=== PATIENT | female | born 1980 | race Hispanic/Latino ===

== ENCOUNTER 2018-07-31 01:29 | Emergency (ER) | payer SELFPAY ==
--- NOTE | 2018-07-31 02:51 | EDPHYS ---
Physician Documentation [facility] Name: Aleyda Horton Age: 38 yrs Sex: Female : 1980 Arrival Date: 07/31/2018 Time: 01:30 Bed 19 Private MD: ED Physician Ashkan Jackson HPI: 07/31 01:41 This 38 yrs old Female presents to ER via Ambulatory with complaints of rash cp on face, Congestion. 01:46 The patient's rash thought to be caused by medication. The rash is located on the face cp and upper chest. Onset: The symptoms/episode began/occurred yesterday, at 17:00. Associated signs and symptoms: Pertinent positives: itching, cough sore throat, Pertinent negatives: difficulty breathing, fever, swelling of lips, swelling of throat, swelling of tongue. Severity of symptoms: in the emergency department the symptoms are unchanged despite home interventions. Treatment given at home: none. Patient reports her children were recently diagnosed with flu and she has had cough, sore throat for past 3 days. Patient reports she has been taking OTC Nyquil and Theraflu and developed rash on face and upper chest yesterday at 1700. 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 - Social history:: Smoking status: Patient/guardian denies using tobacco. - Ebola Screening: : No symptoms or risks identified at this time. ROS: 01:45 Constitutional: Negative for fever, poor PO intake. cp 01:45 Eyes: Negative for injury, pain, redness, and discharge. cp 01:45 ENT: Positive for sore throat, Negative for drainage from ear(s), ear pain, difficulty swallowing, difficulty handling secretions. 01:45 Neck: Negative for pain with movement, pain at rest, stiffness. 01:45 Respiratory: Positive for cough, with no reported sputum, Negative for shortness of breath, wheezing. 01:45 Abdomen/GI: Negative for abdominal pain, vomiting, diarrhea, constipation. 01:45 Skin: Positive for rash, of the face and upper chest. 01:45 Neuro: Negative for altered mental status, headache, weakness. 01:45 All other systems are negative. Exam: 01:55 Constitutional: The patient appears in no acute distress, alert, awake, non-toxic, well cp developed, well nourished. 01:55 Head/face: Noted is rash, that is urticarial, Sinus tenderness, is not appreciated. cp 01:55 Eyes: Periorbital structures: appear normal, Pupils: equal, round, and reactive to light and accomodation, Extraocular movements: intact throughout, Conjunctiva: normal, no exudate, no injection, Sclera: no appreciated abnormality, Lids and lashes: appear normal, bilaterally. 01:55 ENT: External ear(s): are unremarkable, Ear canal(s): are normal, clear, TM's: are normal, no evidence of bulging, no erythema, Nose: is normal, Mouth: Lips: moist, Oral mucosa: moist, Posterior pharynx: Airway: no evidence of obstruction, patent, Tonsils: no enlargement, no exudate, swelling, is not appreciated, erythema, that is mild, exudate, is not appreciated, Voice: is normal. 01:55 Neck: ROM/movement: is normal, is supple, without pain, no range of motions limitations, no nuchal rigidity. 01:55 Chest/axilla: Inspection: rash, of the upper chest and neck Palpation: is normal, no crepitus, no tenderness. 01:55 Cardiovascular: Rate: normal, Rhythm: regular, Edema: is not appreciated, JVD: is not appreciated. 01:55 Respiratory: the patient does not display signs of respiratory distress, Respirations: normal, no use of accessory muscles, no retractions, no splinting, no tachypnea, labored breathing, is not present, Breath sounds: are clear throughout, no decreased breath sounds, no stridor, no wheezing. 01:55 Abdomen/GI: Exam negative for discomfort, distension, guarding, Inspection: abdomen appears normal. Vital Signs: 01:39 BP 140 / 84; Pulse 81; Resp 18; Temp 97.8(O); Pulse Ox 98% on R/A; Weight 92.53 kg; lp1 Height 5 ft. 4 in. (162.56 cm); Pain 9/10; 03:09 BP 128 / 86; Pulse 65; Resp 18; Pulse Ox 98% on R/A; lp1 01:39 Body Mass Index 35.02 (92.53 kg, 162.56 cm) lp1 MDM: 01:30 Patient medically screened. cp 02:50 Data reviewed: vital signs, nurses notes. cp 02:50 Counseling: I had a detailed discussion with the patient and/or guardian regarding: the cp historical points, exam findings, and any diagnostic results supporting the discharge/admit diagnosis, lab results. Response to treatment: the patient's symptoms have mildly improved after treatment, and as a result, I will discharge patient. 07/31 01:46 Order name: Influenza Screen (a \T\ B); Complete Time: 02:53 cp 07/31 02:53 Interpretation: Reviewed. cp 07/31 01:46 Order name: Strep; Complete Time: 02:53 cp 07/31 02:53 Interpretation: Reviewed. cp 07/31 03:04 Order name: Throat Culture EDMS Administered Medications: 02:46 Drug: predniSONE 60 mg Route: PO; ed1 03:22 Follow up: Response: No adverse reaction lp1 02:46 Drug: Pepcid 20 mg Route: PO; ed1 03:22 Follow up: Response: No adverse reaction lp1 Disposition: 03:30 Chart complete. cp 06:12 Co-signature as Attending Physician, Ashkan Jackson MD I agree with the assessment and tw4 plan of care. Disposition: 07/31/18 02:50 Discharged to Home. Impression: Allergy status to drugs, medicaments and biological substances, Urticaria, Acute upper respiratory infection, unspecified. - Condition is Stable. - Discharge Instructions: Hives, Upper Respiratory Infection, Adult. - Prescriptions for Prednisone 20 mg Oral Tablet - take 2 tablet by ORAL route once daily for 5 days; 10 tablet. Albuterol Sulfate 90 mcg/actuation - inhale 1-2 puff by INHALATION route every 4-6 hours; 1 Inhaler. - Medication Reconciliation Form, Thank You Letter, Antibiotic Education, Prescription Opioid Use form. - Follow up: Private Physician; When: 2 - 3 days; Reason: Recheck today's complaints. - Problem is new. - Symptoms have improved. Signatures: Dispatcher [employer] EDMS Mary Kate Rodriguez RN RN ed1 Jennifer Perry RN RN lp1 Luan Day PA PA cp Ashkan Jackson MD MD tw4 Corrections: (The following items were deleted from the chart) 02:28 01:51 Chest Pa And Lat (2 Views)+[email or web address] ordered. EDMS EDMS 03:22 02:50 07/31/2018 02:50 Discharged to Home. Impression: Allergy status to drugs, lp1 medicaments and biological substances; Urticaria; Acute upper respiratory infection, unspecified. Condition is Stable. Forms are Medication Reconciliation Form, Thank You Letter, Antibiotic Education, Prescription Opioid Use. Follow up: Private Physician; When: 2 - 3 days; Reason: Recheck today's complaints. Problem is new. Symptoms have improved. cp
--- NOTE | 2018-07-31 02:51 | ER ---
Nurse's Notes [facility] Name: Aleyda Horton Age: 38 yrs Sex: Female : 1980 Arrival Date: 07/31/2018 Time: 01:30 Bed 19 Private MD: Diagnosis: Allergy status to drugs, medicaments and biological substances;Urticaria;Acute upper respiratory infection, unspecified Presentation: 07/31 01:37 Presenting complaint: Patient states: facial pain, congestion, cough x 4 days; States lp1 taking Theraflu and Nyquil yesterday due to child diagnosed with Flu; States rash that began to face and feels burning. Transition of care: patient was not received from another setting of care. Onset of symptoms was July 30, 2018 at 17:00. Risk Assessment: Do you want to hurt yourself or someone else? Patient reports no desire to harm self or others. Initial Sepsis Screen: Does the patient meet any 2 criteria? No. Patient's initial sepsis screen is negative. Does the patient have a suspected source of infection? No. Patient's initial sepsis screen is negative. Care prior to arrival: None. 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 - Social history:: Smoking status: Patient/guardian denies using tobacco. - Ebola Screening: : No symptoms or risks identified at this time. Screenin:08 Abuse screen: Denies threats or abuse. Denies injuries from another. Nutritional ed1 screening: No deficits noted. Tuberculosis screening: No symptoms or risk factors identified. Fall Risk None identified. Assessment: 02:08 General: Appears in no apparent distress. Behavior is calm, cooperative, Reports ed1 feeling ill for 12-24 hours. Pain: Complains of pain in generalized Pain currently is 9 out of 10 on a pain scale. Quality of pain is described as aching, Pain began 1 day ago. Is continuous. Neuro: Level of Consciousness is awake, alert, obeys commands, Oriented to person, place, time, situation. Cardiovascular: Heart tones S1 S2 present Capillary refill < 3 seconds in bilateral fingers. Respiratory: Reports cough that is non-productive, Airway is patent Respiratory effort is even, unlabored, Respiratory pattern is regular, symmetrical, Breath sounds are clear bilaterally. GI: No signs and/or symptoms were reported involving the gastrointestinal system. : No signs and/or symptoms were reported regarding the genitourinary system. EENT: No signs and/or symptoms were reported regarding the EENT system. Derm: Skin is intact, is healthy with good turgor, Skin is dry, Skin is normal, Skin temperature is warm Rash noted that is urticaria, on face and neck. Musculoskeletal: Circulation, motion, and sensation intact. Range of motion: intact in all extremities. 03:00 Reassessment: Patient appears in no apparent distress at this time. Patient aware of lp1 pending discharge; Monitoring after administration of medications. Vital Signs: 01:39 BP 140 / 84; Pulse 81; Resp 18; Temp 97.8(O); Pulse Ox 98% on R/A; Weight 92.53 kg; lp1 Height 5 ft. 4 in. (162.56 cm); Pain 9/10; 03:09 BP 128 / 86; Pulse 65; Resp 18; Pulse Ox 98% on R/A; lp1 01:39 Body Mass Index 35.02 (92.53 kg, 162.56 cm) lp1 ED Course: 01:30 Patient arrived in ED. ds1 01:30 Luna Day PA is PHCP. cp 01:30 Ashkan Jackson MD is Attending Physician. cp 01:32 Mary Kate Rodriguez, HERNÁN is Primary Nurse. ed1 01:39 Triage completed. lp1 01:39 Arm band placed on. lp1 02:08 Patient has correct armband on for positive identification. Bed in low position. Call ed1 light in reach. 02:08 Flu and/or RSV swab sent to lab. Strep swab sent to lab. ed1 02:48 Primary Nurse role handed off by Mary Kate Rodriguez, HERNÁN ed1 02:55 Report received from Mary Kate Rodriguez RN. lp1 03:08 No provider procedures requiring assistance completed. Patient did not have IV access lp1 during this emergency room visit. 03:21 Jennifer Perry, RN is Primary Nurse. lp1 Administered Medications: 02:46 Drug: predniSONE 60 mg Route: PO; ed1 03:22 Follow up: Response: No adverse reaction lp1 02:46 Drug: Pepcid 20 mg Route: PO; ed1 03:22 Follow up: Response: No adverse reaction lp1 Outcome: 02:50 Discharge ordered by . cp 03:21 Discharged to home ambulatory. lp1 03:21 Condition: good 03:21 Discharge instructions given to patient, Instructed on discharge instructions, follow up and referral plans. medication usage, Demonstrated understanding of instructions, follow-up care, medications, Prescriptions given X 2. 03:22 Patient left the ED. lp1 Signatures: Abbie Polanco ds1 Mary Kate Rodriguez RN RN ed1 Jennifer Perry RN RN lp1 Luan Day, AYAZ PA cp
[2018-07-31] MEDS ORDERED: predniSONE 20 MG TAB ONE (02:54)
[2018-07-31] MEDS ORDERED: FAMOTIDINE 20 MG TAB ONE (02:54)
[2018-07-31 03:29] VITALS: TEMP 97.8; O2SAT 98
[2018-07-31 03:30] VITALS: BP 128/86
== END 2018-07-31 03:22 | disposition home or self-care (01) ==
LOC: ER 01:29
DX: L50.9 Urticaria, unspecified (principal); J06.9 Acute upper respiratory infection, unspecified; Z88.0 Allergy status to penicillin; Z88.9 Allergy status to unspecified drugs, medicaments and biological substances
CPT/HCPCS: 87070; 87081; 87804; 99283; J7512

== ENCOUNTER 2019-05-17 13:23 | Emergency (ER) | payer SELFPAY ==
[2019-05-17] MEDS ORDERED: MORPHINE 4 MG/ML SYR ONE (15:20)
[2019-05-17] MEDS ORDERED: ONDANSETRON 4 MG/2 ML VIAL ONE (15:20)
[2019-05-17] MEDS ORDERED: NA CHLORIDE 0.9% 1,000 ML ONE (15:20)
[2019-05-17 15:23] LABS: Basophils % 0.5 % (0-1.3); Hematocrit 38.4 % (36.0-45.0); Lymphocytes % 36.6 % (15.3-44.8); MPV 10.3 fL (7.6-11.3); RBC Red Blood Cell Count 4.22 M/uL (3.86-4.86)
[2019-05-17 15:34] LABS: ALT/SGPT 64 U/L (12-78); AST/SGOT 23 U/L (15-37); Albumin 3.5 g/dL (3.4-5.0); Alkaline Phosphatase 68 U/L (45-117); BUN Blood Urea Nitrogen 15 mg/dL (7-18); Bicarbonate 25 mmol/L (21-32); Bilirubin Direct 0.1 mg/dL (0-0.2); Bilirubin Total 0.3 mg/dL (0.2-1.0); Glucose Level 113 mg/dL (74-106); Lipase 208 U/L (73-393); Potassium 4.2 mmol/L (3.5-5.1); Sodium Level 141 mmol/L (136-145)
--- NOTE | 2019-05-17 16:44 | RAD REPORT ---
EXAM DESCRIPTION: CT - Abdomen Pelvis W Contrast - 05/17/2019 4:07 pm CLINICAL HISTORY: Abd pain;Flank pain COMPARISON: Abdomen Pelvis W Contrast dated 06/15/2017; Abdomen Pelvis W Contrast dated 09/06/2016 TECHNIQUE: Biphasic, helical CT imaging of the abdomen and pelvis was performed following 100 ml non -ionic IV contrast. No oral contrast. All CT scans are performed using dose optimization technique as appropriate and may include automated exposure control or mA/KV adjustment according to patient size. FINDINGS: No suspicious findings in the lung bases. Liver shows diffuse fatty infiltration. No focal liver lesion. Cholecystectomy clips are present. Henderson creas and spleen show no suspicious findings. Symmetric renal function is seen with no hydronephrosis or suspicious renal mass. No pyelonephritis o r acute parenchymal process. No bladder abnormalities. No adrenal abnormalities. Uterus and ovaries w ithout significant finding. No dilated bowel loops or bowel wall thickening. Appendectomy clips are present. No acute bowel findi ng. No free air, free fluid or inflammatory stranding. No hernia, mass or bulky lymphadenopathy. No suspicious bony findings. IMPRESSION: Contrast enhanced CT abdomen and pelvis showing no significant or suspicious finding.
[2019-05-17 16:49] LABS: Urine Blood NEGATIVE (NEG); Urine Glucose NEGATIVE (NEG); Urine Protein NEGATIVE (NEG); Urine Specific Gravity >1.030 (1.005-1.030)
--- NOTE | 2019-05-17 17:02 | ER ---
Nurse's Notes [facility] Name: Aleyda Horton Age: 39 yrs Sex: Female : 1980 Arrival Date: 05/17/2019 Time: 13:26 Bed 13 Private MD: Diagnosis: Unspecified abdominal pain;Lumbago with sciatica, left side Presentation: 05/17 13:54 Presenting complaint: Patient states: Left sided lower back pain radiates to left leg jl7 started last night. Epigastric pain started a couple weeks ago and has gotten worse today, reports diarrhea, denies N/V. Transition of care: patient was not received from another setting of care. Onset of symptoms was May 16, 2019. Risk Assessment: Do you want to hurt yourself or someone else? Patient reports no desire to harm self or others. Initial Sepsis Screen: Does the patient meet any 2 criteria? No. Patient's initial sepsis screen is negative. Does the patient have a suspected source of infection? No. Patient's initial sepsis screen is negative. Care prior to arrival: None. 13:54 Method Of Arrival: Ambulatory [facility] 13:54 Acuity: [place] 3 jl7 Triage Assessment: 13:57 General: Appears in no apparent distress. uncomfortable, Behavior is calm, cooperative, jl7 appropriate for age. Pain: Complains of pain in epigastric area Pain radiates to thoracic area Pain currently is 9 out of 10 on a pain scale. Quality of pain is described as burning, Pain began 1 day ago. 3 months. 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 - Social history:: Smoking status: Patient uses tobacco products, denies chronic smoking, but will smoke occasionally. - Ebola Screening: : No symptoms or risks identified at this time. Screenin:00 Abuse screen: Denies threats or abuse. Denies injuries from another. Nutritional bp screening: No deficits noted. Tuberculosis screening: No symptoms or risk factors identified. Fall Risk None identified. Assessment: 14:00 General: SEE TRIAGE NOTE. GI: Bowel sounds present X 4 quads. Abd is soft X 4 quads Abd bp is non tender X 4 quads. 16:00 Reassessment: PT TO CT, RESULTS PENDING. bp 17:38 Reassessment: PT D/C HOME AMBULATORY WITH FAMILY, DX WITH UNSPECIFIED ABDOMINAL PAIN bp AND LUMBAGO. Vital Signs: 13:57 BP 125 / 76; Pulse 72; Resp 16; Temp 97.7; Pulse Ox 99% on R/A; Pain 9/10; jl7 15:23 BP 118 / 74; Pulse 62; Resp 17; Temp 98.8(O); Pulse Ox 100% on R/A; mh5 16:20 BP 117 / 69; Pulse 59; Resp 16; Pulse Ox 97% ; bp 16:45 BP 115 / 86; Pulse 64; Resp 16; Pulse Ox 100% ; bp ED Course: 13:26 Patient arrived in ED. mr 13:57 Triage completed. jl7 13:57 Arm band placed on right wrist. jl7 14:00 Patient has correct armband on for positive identification. Placed in gown. Bed in low bp position. Call light in reach. Adult w/ patient. 14:41 Mark Madrigal, UNIVERSAL GRINDER SET UP OPERATOR is PHCP. pm1 14:41 Luan Reis MD is Attending Physician. pm1 15:10 Eduardo Lisa, HERNÁN is Primary Nurse. bp 15:21 Radiology exam delayed due to lab results not completed at this time. (BUN/Creatinine) mw3 test not completed at this time. 15:22 Pulse ox on. NIBP on. mh5 15:22 Initial lab(s) drawn, by nv, sent to lab. Urine collected: clean catch specimen, mh5 cloudy. Inserted saline lock: 20 gauge in right antecubital area, using aseptic technique. 16:05 CT completed. Patient tolerated procedure well. Patient moved back from CT. bq 16:14 CT Abd/Pelvis - IV Contrast Only In Process Unspecified. EDMS 17:40 No provider procedures requiring assistance completed. IV discontinued. bp Administered Medications: 15:00 Drug: morphine 4 mg Route: IVP; Site: right antecubital; bp 16:46 Follow up: Response: Pain is decreased bp 15:00 Drug: Zofran 4 mg Route: IVP; Site: right antecubital; bp 16:46 Follow up: Response: Nausea is decreased bp 15:00 Drug: NS 0.9% 1000 ml Route: IV; Rate: 1000 ml; Site: right antecubital; bp 17:41 Follow up: IV Status: Completed infusion; IV Intake: 1000ml bp 17:10 Drug: Lidoderm 5 % (700 mg/patch) 1 patches Route: Topical; Site: affected area; bp 17:10 Drug: GI Cocktail without - (Maalox Suspension 30 ml, Lidocaine Liquid 2 % 15 bp ml) Route: PO; 17:16 Follow up: Response: No adverse reaction bp Intake: 17:41 IV: 1000ml; Total: 1000ml. bp Outcome: 17:01 Discharge ordered by . pm1 17:40 Discharged to home ambulatory, with family. bp 17:40 Condition: stable 17:40 Discharge instructions given to patient, Instructed on discharge instructions, follow up and referral plans. medication usage, Demonstrated understanding of instructions, follow-up care, medications. 17:44 Patient left the ED. bp Signatures: Dispatcher [employer] EDIL Carmen Jett Betty bq Marinas, Patrick, JOS UNIVERSAL GRINDER SET UP OPERATOR pm1 Aleyda Rock 5 Suly George RN RN jl7 Eduardo Lisa RN RN Kavya Martines mw3
--- NOTE | 2019-05-17 17:02 | EDPHYS ---
Physician Documentation [facility] Name: Aleyda Horton Age: 39 yrs Sex: Female : 1980 Arrival Date: 05/17/2019 Time: 13:26 Bed 13 Private MD: ED Physician Luan Reis HPI: 05/17 14:42 This 39 yrs old Female presents to ER via Ambulatory with complaints of pm1 Abdominal Pain, Back Pain. 14:42 The patient presents with abdominal pain in the epigastric area. Onset: The pm1 symptoms/episode began/occurred 2 week(s) ago. The symptoms do not radiate. Associated signs and symptoms: Pertinent positives: diarrhea, Pertinent negatives: nausea and vomiting, dysuria, fever, headache. The symptoms are described as crampy. Modifying factors: The symptoms are alleviated by nothing, the symptoms are aggravated by nothing. Severity of pain: in the emergency department the pain is a 3 / 10. Feels similar to her epigastric pain prior to cholecystectomy. The patient has not recently seen a physician. Patient also having left lower back pain with radiation to left leg onset last night. Improved with right sided lying position and worse with left sided lysing position and lying flat on back. 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 - Social history:: Smoking status: Patient uses tobacco products, denies chronic smoking, but will smoke occasionally. - Ebola Screening: : No symptoms or risks identified at this time. ROS: 14:42 Constitutional: Negative for fever, chills, and weight loss, Eyes: Negative for injury, pm1 pain, redness, and discharge, ENT: Negative for injury, pain, and discharge, Neck: Negative for injury, pain, and swelling, Cardiovascular: Negative for chest pain, palpitations, and edema, Respiratory: Negative for shortness of breath, cough, wheezing, and pleuritic chest pain. 14:42 : Negative for injury, bleeding, discharge, and swelling, MS/Extremity: Negative for injury and deformity, Skin: Negative for injury, rash, and discoloration, Neuro: Negative for headache, weakness, numbness, tingling, and seizure. 14:42 Abdomen/GI: Positive for abdominal pain, diarrhea, Negative for nausea and vomiting, constipation. 14:42 Back: Positive for of the left low back, Negative for injury or acute deformity. Exam: 14:42 Constitutional: This is a well developed, well nourished patient who is awake, alert, pm1 and in no acute distress. Head/Face: Normocephalic, atraumatic. Neck: Trachea midline, no thyromegaly or masses palpated, and no cervical lymphadenopathy. Supple, full range of motion without nuchal rigidity, or vertebral point tenderness. No Meningismus. Chest/axilla: Normal chest wall appearance and motion. Nontender with no deformity. No lesions are appreciated. Cardiovascular: Regular rate and rhythm with a normal S1 and S2. No gallops, murmurs, or rubs. Normal PMI, no JVD. No pulse deficits. Respiratory: Lungs have equal breath sounds bilaterally, clear to auscultation and percussion. No rales, rhonchi or wheezes noted. No increased work of breathing, no retractions or nasal flaring. 14:42 Back: No spinal tenderness. No costovertebral tenderness. Full range of motion. Skin: Warm, dry with normal turgor. Normal color with no rashes, no lesions, and no evidence of cellulitis. MS/ Extremity: Pulses equal, no cyanosis. Neurovascular intact. Full, normal range of motion. 14:42 Abdomen/GI: Inspection: abdomen appears normal, Bowel sounds: normal, Palpation: soft, mild abdominal tenderness, in the epigastric area, mass, is not appreciated, rebound tenderness, is not appreciated. 14:42 Neuro: Orientation: is normal, Motor: is normal, moves all fours. Vital Signs: 13:57 BP 125 / 76; Pulse 72; Resp 16; Temp 97.7; Pulse Ox 99% on R/A; Pain 9/10; jl7 15:23 BP 118 / 74; Pulse 62; Resp 17; Temp 98.8(O); Pulse Ox 100% on R/A; mh5 16:20 BP 117 / 69; Pulse 59; Resp 16; Pulse Ox 97% ; bp 16:45 BP 115 / 86; Pulse 64; Resp 16; Pulse Ox 100% ; bp MDM: 14:41 Patient medically screened. pm1 16:43 Data reviewed: vital signs. Data interpreted: Pulse oximetry: on room air is 97 %. pm1 Interpretation: normal. 16:59 ED course: Patient lying on her back. Pain has improved to abdomen and lower back. Will pm1 give additional pain medications to achieve further pain relief. 16:59 Counseling: I had a detailed discussion with the patient and/or guardian regarding: the pm1 historical points, exam findings, and any diagnostic results supporting the discharge/admit diagnosis, lab results, radiology results, the need for outpatient follow up, a family practitioner, a radiology services manager, to return to the emergency department if symptoms worsen or persist or if there are any questions or concerns that arise at home. 05/17 14:42 Order name: Basic Metabolic Panel; Complete Time: 15:38 pm1 05/17 14:42 Order name: CBC with Diff; Complete Time: 15:38 pm1 05/17 14:42 Order name: Creatinine for Radiology; Complete Time: 15:38 pm1 05/17 14:42 Order name: Hepatic Function; Complete Time: 15:38 pm1 05/17 14:42 Order name: Lipase; Complete Time: 15:38 pm1 05/17 15:35 Order name: Urine Dipstick--Ancillary (enter results); Complete Time: 16:54 ms 05/17 14:42 Order name: IV Saline Lock; Complete Time: 15:47 pm1 05/17 14:55 Order name: CT Abd/Pelvis - IV Contrast Only; Complete Time: 16:54 pm1 05/17 15:35 Order name: Urine --Ancillary (enter results); Complete Time: 16:54 ms 05/17 14:42 Order name: Labs collected and sent; Complete Time: 15:48 pm1 05/17 14:42 Order name: Urine Dipstick-Ancillary (obtain specimen); Complete Time: 15:21 pm1 05/17 14:42 Order name: Urine Test (obtain specimen); Complete Time: 15:21 pm1 Administered Medications: 15:00 Drug: morphine 4 mg Route: IVP; Site: right antecubital; bp 16:46 Follow up: Response: Pain is decreased bp 15:00 Drug: Zofran 4 mg Route: IVP; Site: right antecubital; bp 16:46 Follow up: Response: Nausea is decreased bp 15:00 Drug: NS 0.9% 1000 ml Route: IV; Rate: 1000 ml; Site: right antecubital; bp 17:41 Follow up: IV Status: Completed infusion; IV Intake: 1000ml bp 17:10 Drug: Lidoderm 5 % (700 mg/patch) 1 patches Route: Topical; Site: affected area; bp 17:10 Drug: GI Cocktail without - (Maalox Suspension 30 ml, Lidocaine Liquid 2 % 15 bp ml) Route: PO; 17:16 Follow up: Response: No adverse reaction bp Disposition: 05/17/19 17:01 Discharged to Home. Impression: Unspecified abdominal pain, Lumbago with sciatica, left side. - Condition is Stable. - Discharge Instructions: Abdominal Pain, Adult, Sciatica. - Prescriptions for Lidoderm 5 % Topical adhesive patch,medicated - apply 1 patch by TRANSDERMAL route once daily As needed; 30 Transdermal Patch. Bentyl 20 mg Oral Tablet - take 1 tablet by ORAL route every 6 hours As needed; 20 tablet. Pepcid 20 mg Oral Tablet - take 1 tablet by ORAL route every 12 hours for 10 days; 20 tablet. - Medication Reconciliation Form, Thank You Letter, Antibiotic Education, Prescription Opioid Use form. - Follow up: Emergency Department; When: As needed; Reason: Worsening of condition. Follow up: Private Physician; When: 2 - 3 days; Reason: Recheck today's complaints, Continuance of care, Re-evaluation by your physician. - Problem is new. - Symptoms have improved. Addendum: 05/19/2019 09:29 Co-signature as Attending Physician, Luan Reis MD I agree with the assessment and c melgar plan of care. Signatures: Dispatcher [employer] Luan Connors MD MD cha Marinas, Patrick, CHEMICAL OPERATIONS SPECIALIST CHEMICAL OPERATIONS SPECIALIST pm1 Suly George RN RN jl7 Eduardo Lisa RN RN bp Corrections: (The following items were deleted from the chart) 05/17 17:44 17:01 05/17/2019 17:01 Discharged to Home. Impression: Unspecified abdominal pain; bp Lumbago with sciatica, left side. Condition is Stable. Forms are Medication Reconciliation Form, Thank You Letter, Antibiotic Education, Prescription Opioid Use. Follow up: Emergency Department; When: As needed; Reason: Worsening of condition. Follow up: Private Physician; When: 2 - 3 days; Reason: Recheck today's complaints, Continuance of care, Re-evaluation by your physician. Problem is new. Symptoms have improved. pm1
[2019-05-17] MEDS ORDERED: LIDOCAINE 4% PATCH ONE (17:09)
[2019-05-17] MEDS ORDERED: LIDOCAINE VISCOUS 2% SOLN 15 ML UDC ONE (17:10)
[2019-05-17] MEDS ORDERED: MAGNE/ALUM HYDROXD 30 ML UCUP ONE (17:10)
[2019-05-17 19:59] VITALS: TEMP 98.8
[2019-05-17 20:01] VITALS: BP 115/86; O2SAT 100
== END 2019-05-17 17:44 | disposition home or self-care (01) ==
LOC: ER 13:23
DX: M54.42 Lumbago with sciatica, left side (principal); Z72.0 Tobacco use; Z88.0 Allergy status to penicillin
CPT/HCPCS: 36415; 74177; 80048; 80076; 81003; 81025; 83690; 85025; 96361; 96374; 96375; 99284; J2405; J7030; Q9967

== ENCOUNTER 2019-12-09 19:23 | Emergency (ER) | payer SELFPAY ==
--- NOTE | 2019-12-09 19:53 | ER ---
Nurse's Notes [facility] Name: Aleyda Horton Age: 39 yrs Sex: Female : 1980 Arrival Date: 12/09/2019 Time: 19:25 Bed 16 Private MD: Diagnosis: Acute suppurative otitis media with spontaneous rupture of ear drum, right ear Presentation: 12/08 19:30 Chief complaint: Patient states: Right eye pain since yesterday. Reports pain to right ll1 side of face today, including right ear. + sore throat. No fever or cough. Coronavirus screen: Patient denies a cough. Patient denies shortness of breath or difficulty breathing. Patient denies measured and/or subjective temperature greater than 100.4F prior to today's visit. Patient denies travel on a cruise ship or to a country the [facility] currently lists as an affected area. Patient denies contact with known and/or suspected case of COVID-19. Patient instructed to continue to wear a mask when interacting with others. Patient moved to private room, placed in contact and droplet isolation with eye protection until further assessment. Ebola Screen: Patient denies travel to an Ebola-affected area in the 21 days before illness onset. Initial Sepsis Screen: Does the patient meet any 2 criteria? HR > 90 bpm. Does the patient have a suspected source of infection? No. Patient's initial sepsis screen is negative. Risk Assessment: Do you want to hurt yourself or someone else? Patient reports no desire to harm self or others. Onset of symptoms was December 08, 2019. 19:30 Acuity: [place] 4 ll1 19:30 Method Of Arrival: Ambulatory ll1 Historical: - Allergies: 19:30 PENICILLINS; ll1 - PSHx: 19:30 Appendectomy; ll1 - Immunization history:: Flu vaccine is up to date. - Social history:: Smoking status: Patient reports the use of cigarette tobacco products, denies chronic smoking, but will smoke occasionally, Patient uses alcohol, only on a social basis. Patient/guardian denies using street drugs. Screenin:38 Abuse screen: Denies threats or abuse. Nutritional screening: No deficits noted. jb4 Tuberculosis screening: No symptoms or risk factors identified. Fall Risk None identified. Assessment: 19:38 General: Appears in no apparent distress. uncomfortable, Behavior is calm, cooperative, jb4 appropriate for age. Pain: Complains of pain in right ear Pain radiates to right side of head Pain currently is 10 out of 10 on a pain scale. Neuro: Level of Consciousness is awake, alert, obeys commands, Oriented to person, place, time, situation. Cardiovascular: Patient's skin is warm and dry. Respiratory: Airway is patent Respiratory effort is even, unlabored, Respiratory pattern is regular, symmetrical. GI: No signs and/or symptoms were reported involving the gastrointestinal system. : No signs and/or symptoms were reported regarding the genitourinary system. EENT: No signs and/or symptoms were reported regarding the EENT system. Derm: Skin is intact, Skin is pink, warm \T\ dry. Musculoskeletal: Circulation, motion, and sensation intact. Range of motion: intact in all extremities. 20:07 Reassessment: Patient appears in no apparent distress at this time. Patient and/or jb4 family updated on plan of care and expected duration. Pain level reassessed. Patient is alert, oriented x 3, equal unlabored respirations, skin warm/dry/pink. Vital Signs: 19:30 BP 132 / 92; Pulse 92; Resp 18; Temp 97.7; Pulse Ox 99% ; Weight 99.79 kg; Height 5 ft. ll1 4 in. (162.56 cm); Pain 10/10; 19:30 Body Mass Index 37.76 (99.79 kg, 162.56 cm) ll1 ED Course: 19:25 Patient arrived in ED. bp1 19:32 Triage completed. ll1 19:32 Arm band placed on Patient placed in an exam room, on a stretcher. ll1 19:37 Mark Madrigal NP is PHCP. pm1 19:37 Luan Reis MD is Attending Physician. pm1 19:38 Patient has correct armband on for positive identification. Bed in low position. Call jb4 light in reach. Side rails up X 1. 19:48 Javier Burris, HERNÁN is Primary Nurse. jb4 20:08 No provider procedures requiring assistance completed. Patient did not have IV access jb4 during this emergency room visit. Administered Medications: 19:56 Drug: HYDROcodone-acetaminophen 10 mg-325 mg 1 tabs {Note: Rass score 0.} Route: PO; jb4 20:08 Follow up: Response: No adverse reaction; Pain is decreased; RASS: Alert and Calm (0) jb4 Outcome: 19:53 Discharge ordered by MD. pm1 20:08 Discharged to home ambulatory. jb4 20:08 Condition: stable 20:08 Discharge instructions given to patient, Instructed on discharge instructions, follow up and referral plans. medication usage, Demonstrated understanding of instructions, follow-up care, medications, Prescriptions given X 2. 20:08 Patient left the ED. jb4 Signatures: Mark Madrigal NP BRIAR CUTTER pm1 Javier Burris RN RN jb4 Danny Morel RN RN ll1 Katherine Littlejohn [facility]
--- NOTE | 2019-12-09 19:54 | EDPHYS ---
Physician Documentation [facility] Name: Aleyda Horton Age: 39 yrs Sex: Female : 1980 Arrival Date: 12/09/2019 Time: 19:25 Bed 16 Private MD: ED Physician Luan Reis HPI: 12/08 19:50 This 39 yrs old Female presents to ER via Ambulatory with complaints of Right pm1 ear pain. 19:50 The patient presents with pain. The complaints affect the right ear. Onset: The pm1 symptoms/episode began/occurred 3 day(s) ago. Modifying factors: The symptoms are alleviated by nothing, the symptoms are aggravated by nothing. Associated signs and symptoms: Pertinent positives: Right neck lymph node swelling and right sided facial pain. Severity of symptoms: in the emergency department the symptoms are worse. The patient has not experienced similar symptoms in the past. The patient has not recently seen a physician. Historical: - Allergies: 19:30 PENICILLINS; ll1 - PSHx: 19:30 Appendectomy; ll1 - Immunization history:: Flu vaccine is up to date. - Social history:: Smoking status: Patient reports the use of cigarette tobacco products, denies chronic smoking, but will smoke occasionally, Patient uses alcohol, only on a social basis. Patient/guardian denies using street drugs. ROS: 19:50 Constitutional: Negative for fever, chills, and weight loss. pm1 19:50 Cardiovascular: Negative for chest pain, palpitations, and edema, Respiratory: Negative for shortness of breath, cough, wheezing, and pleuritic chest pain, Abdomen/GI: Negative for abdominal pain, nausea, vomiting, diarrhea, and constipation, Back: Negative for injury and pain, MS/Extremity: Negative for injury and deformity, Skin: Negative for injury, rash, and discoloration. 19:50 Neuro: Negative for headache, weakness, numbness, tingling, and seizure. 19:50 Eyes: Positive for pain, of the right eye, Negative for blurry vision, discharge, photophobia, redness, vision loss, visual disturbance. 19:50 ENT: Positive for drainage from ear(s), ear pain, Negative for sore throat, dental pain, difficulty swallowing, difficulty handling secretions, hoarseness. 19:50 Neck: Positive for swollen nodes. Exam: 19:50 Constitutional: This is a well developed, well nourished patient who is awake, alert, pm1 and in no acute distress. Head/Face: Normocephalic, atraumatic. Eyes: Pupils equal round and reactive to light, extra-ocular motions intact. Lids and lashes normal. Conjunctiva and sclera are non-icteric and not injected. Cornea within normal limits. Periorbital areas with no swelling, redness, or edema. 19:50 Chest/axilla: Normal chest wall appearance and motion. Nontender with no deformity. No lesions are appreciated. 19:50 Skin: Warm, dry with normal turgor. Normal color with no rashes, no lesions, and no evidence of cellulitis. MS/ Extremity: Pulses equal, no cyanosis. Neurovascular intact. Full, normal range of motion. 19:50 ENT: External ear(s): are unremarkable, Ear canal(s): purulent discharge, that is minimal, in the right canal, TM's: rupture, on the right, with purulent discharge, Examination of the other ear shows no obvious abnormality, Posterior pharynx: is normal. 19:50 Neck: ROM/movement: no acute changes, Meningeal signs: are not present, nuchal rigidity, is not appreciated, Lymph nodes: lymphadenopathy is appreciated, anterior cervical nodes, right side. 19:50 Cardiovascular: Exam negative for acute changes, Rate: normal, Rhythm: regular, Pulses: no pulse deficits are appreciated. 19:50 Respiratory: Exam negative for acute changes, respiratory distress, shortness of breath. 19:50 Neuro: Exam negative for acute changes, Orientation: is normal, Mentation: is normal, Motor: is normal, moves all fours, Gait: is steady, at a normal pace, without difficulty. Vital Signs: 19:30 BP 132 / 92; Pulse 92; Resp 18; Temp 97.7; Pulse Ox 99% ; Weight 99.79 kg; Height 5 ft. ll1 4 in. (162.56 cm); Pain 10/10; 19:30 Body Mass Index 37.76 (99.79 kg, 162.56 cm) ll1 MDM: 19:37 Patient medically screened. pm1 19:43 Data reviewed: vital signs. Data interpreted: Pulse oximetry: on room air is 99 %. pm1 Interpretation: normal. 19:50 ED course: Instructed the patient to stop taking her OTC ear drops due to the pm1 perforated eardrum and lack of otitis externa. 19:51 Counseling: I had a detailed discussion with the patient and/or guardian regarding: the pm1 historical points, exam findings, and any diagnostic results supporting the discharge/admit diagnosis, the need for outpatient follow up, to return to the emergency department if symptoms worsen or persist or if there are any questions or concerns that arise at home. Administered Medications: 19:56 Drug: HYDROcodone-acetaminophen 10 mg-325 mg 1 tabs {Note: Rass score 0.} Route: PO; jb4 20:08 Follow up: Response: No adverse reaction; Pain is decreased; RASS: Alert and Calm (0) jb4 Disposition: 12/09 08:40 Co-signature as Attending Physician, Luan Reis MD I agree with the assessment and juan j plan of care. Disposition: 12/09/19 19:53 Discharged to Home. Impression: Acute suppurative otitis media with spontaneous rupture of ear drum, right ear. - Condition is Stable. - Discharge Instructions: Otitis Media, Adult. - Prescriptions for Levaquin 500 mg Oral Tablet - take 1 tablet by ORAL route once daily for 10 days; 10 tablet. Tylenol- Codeine #3 300-30 mg Oral Tablet - take 2 tablets by ORAL route every 6 hours As needed; 20 tablet. - Medication Reconciliation Form, Thank You Letter, Antibiotic Education, Prescription Opioid Use form. - Follow up: Emergency Department; When: As needed; Reason: Worsening of condition. Follow up: Private Physician; When: 2 - 3 days; Reason: Recheck today's complaints, Continuance of care, Re-evaluation by your physician. - Problem is new. - Symptoms have improved. Signatures: Luan Reis MD MD cha Marinas, Patrick, UNDERGROUND FOREMAN UNDERGROUND FOREMAN pm1 Javier Burris RN RN jb4 Danny Morel RN RN ll1 Corrections: (The following items were deleted from the chart) 12/08 20:08 19:53 12/09/2019 19:53 Discharged to Home. Impression: Acute suppurative otitis media jb4 with spontaneous rupture of ear drum, right ear. Condition is Stable. Forms are Medication Reconciliation Form, Thank You Letter, Antibiotic Education, Prescription Opioid Use. Follow up: Emergency Department; When: As needed; Reason: Worsening of condition. Follow up: Private Physician; When: 2 - 3 days; Reason: Recheck today's complaints, Continuance of care, Re-evaluation by your physician. Problem is new. Symptoms have improved. pm1
[2019-12-09] MEDS ORDERED: HYDROCODONE/APAP 10/325 TAB ONE (20:00)
[2019-12-09 20:19] VITALS: BP 132/92; TEMP 97.7; O2SAT 99
== END 2019-12-09 20:08 | disposition home or self-care (01) ==
LOC: ER 19:23
DX: H66.011 Acute suppurative otitis media with spontaneous rupture of ear drum, right ear (principal); F17.210 Nicotine dependence, cigarettes, uncomplicated; Z88.0 Allergy status to penicillin
CPT/HCPCS: 99283

== ENCOUNTER 2021-03-07 05:01 | Emergency (ER) | payer SELFPAY ==
[2021-03-07 05:33] LABS: Urine Blood 3+ (Negative); Urine Glucose Negative (Negative); Urine Protein 1+ (Negative); Urine Specific Gravity >=1.030 (1.005-1.030); Urine pH 5.5 (5.0-7.0)
[2021-03-07 06:30] LABS: Absolute Lymphocytes (CBC) 2.4 K/uL (0.7-4.9); Basophils % 0.6 % (0-1.3); Hematocrit 41.8 % (36.0-45.0); Lymphocytes % 22.1 % (15.3-44.8); MPV 9.6 fL (7.6-11.3); RBC Red Blood Cell Count 4.59 M/uL (3.86-4.86)
[2021-03-07 06:53] LABS: Potassium 3.9 mmol/L (3.5-5.1)
--- NOTE | 2021-03-07 07:04 | ER ---
Nurse's Notes [facility] Name: Aleyda Horton Age: 40 yrs Sex: Female : 1980 Arrival Date: 03/07/2021 Time: 05:06 Bed 23 Private MD: Diagnosis: Hematuria, unspecified;, 5 weeks Presentation: 03/07 05:17 Chief complaint: Patient states: Reports pink in color discharge yesterday morning, lp1 this AM, bright red blood after wiping after voiding; Reports pelvic pain; Patient is currently 7 wks ; Reports currently taking Macrobid after [employer] appt about 3 days ago. Coronavirus screen: At this time, the client does not indicate any symptoms associated with coronavirus-19. Ebola Screen: No symptoms or risks identified at this time. Initial Sepsis Screen: Does the patient meet any 2 criteria? No. Patient's initial sepsis screen is negative. Does the patient have a suspected source of infection? No. Patient's initial sepsis screen is negative. Risk Assessment: Do you want to hurt yourself or someone else? Patient reports no desire to harm self or others. Onset of symptoms was March 07, 2021. 05:17 Method Of Arrival: Ambulatory lp1 05:17 Acuity: [place] 3 lp1 Triage Assessment: 05:12 General: Appears in no apparent distress. Behavior is calm, cooperative. Pain: cc4 Complains of pain in pelvis Pain began 03/07/2021 \\T\\ 0300 when up to BR to urinate \\T\\ noted red discharge upon wiping with mild cramping of lower abdomen/pelvis when up; report cramping is relieved at rest; reports cramping is a "3-4" on pain scale when up ambulating. : Reports cramping, Lower abdomen/pelvic area. vaginal bleeding that is that started as pink \\T\\ 0900 03/06/2021 when wiping after urination that became small amount "red' bleeding upon wiping after urinating \\T\\ 0300 this am. Denies pain with urination. HE[employer] WEL[employer] P[employer]: 05:21 LMP 01/15/2021, Verified, EDC 10/22/2021, Gestational age from LMP: 7 weeks 2 lp1 days 06:07 6, Full Term 4, Premature 0, 1, Living 4 mh7 Historical: - Allergies: 05:20 PENICILLINS; lp1 - Home Meds: 05:20 Macrobid 100 mg Oral cap 1 cap every 12 hours [Active]; lp1 - PMHx: 05:20 Ectopic ; lp1 - PSHx: 05:20 None; lp1 - Immunization history:: Adult Immunizations up to date. - Social history:: Smoking status: Patient denies any tobacco usage or history of. Screenin:21 Abuse screen: Denies threats or abuse. Denies injuries from another. Nutritional lp1 screening: No deficits noted. Tuberculosis screening: No symptoms or risk factors identified. Fall Risk None identified. Assessment: 05:12 Obstetrical Assessment: Patient reports LMP 01/15/2021 with + test; reports cc4 OBGYN reporting \\T\\ weeks gestation with diagnosis of UTI 3 days ago \\T\\ prescribed Macrobid \\T\\ taking x 3 days.. Pain: Complains of pain in abdomen and pelvis Pain at worst was 4 out of 10 on a pain scale. Quality of pain is described as crampy, Pain began 03/07/2021 \\T\\ 0300 Alleviated by rest, Aggravated by when ambulating. : Reports cramping, vaginal bleeding that is Denies burning with urination. 05:20 Reassessment: Up to BR \\T\\ urinating with urine specimen collected \\T\\ sent to lab. cc 4 05:30 Reassessment: Patient appears in no apparent distress at this time. To ultrasound via cc4 wheelchair with vaginal ultrasound completed per US tech. 06:10 Reassessment: Returned from ultrasound via wheelchair \\T\\ assisted onto stretcher; # 20 g cc4 saline lock inserted right AC x 1 attempt with blood drawn \\T\\ sent to lab \\T\\ blood bank, joe. well; to right wrist BB band applied; NAD. 07:03 Reassessment: Patient and/or family updated on plan of care and expected duration. Pain ap3 level reassessed. Patient is alert, oriented x 3, equal unlabored respirations, skin warm/dry/pink. updated patient on AM care team. Vital Signs: 05:12 BP 128 / 80; Pulse 85; Resp 20; Temp 98.0; Pulse Ox 99% on R/A; cc4 05:17 BP 128 / 80; Pulse 91; Resp 18; Temp 98(O); Pulse Ox 99% on R/A; Weight 87.54 kg (R); lp1 Height 5 ft. 6 in. (167.64 cm); Pain 4/10; 06:15 BP 122 / 76; Pulse 82; Resp 20; Pulse Ox 98% on R/A; cc4 06:45 BP 123 / 79; Pulse 85; Resp 20; Pulse Ox 97% ; cc4 05:17 Body Mass Index 31.15 (87.54 kg, 167.64 cm) lp1 Vitals: 07:21 Heart Tones patient had vaginal US. see report. ap3 ED Course: 05:06 Patient arrived in ED. wm 05:11 Emily Galicia, RN is Primary Nurse. cc4 05:12 Patient has correct armband on for positive identification. Placed in gown. Bed in low cc4 position. Call light in reach. Side rails up X 1. 05:17 Giacomo Wang MD is Attending Physician. 7 05:20 Triage completed. lp1 05:20 Arm band placed on. lp1 05:33 Transvaginal OB US Sent. cc4 06:08 Transvaginal OB US In Process Unspecified. EDMS 06:27 Urine --Ancillary (enter results) Sent. cc4 06:27 Urine Microscopic Only Sent. cc4 06:27 Abo/rh Typing Sent. cc4 06:27 Basic Metabolic Panel Sent. cc4 06:27 CBC with Diff Sent. cc4 06:27 Quantitative Hcg Sent. cc4 07:02 Nitin Talley MD is Referral Physician. mh7 07:03 Primary Nurse role handed off by Emily Galicia, HERNÁN ap3 07:03 Yara Amor, HERNÁN is Primary Nurse. ap3 07:21 No provider procedures requiring assistance completed. IV discontinued, intact, ap3 bleeding controlled, No redness/swelling at site. Pressure dressing applied. Administered Medications: No medications were administered Point of Care Testing: Urine : 07:22 hCG Reading: Positive; Control Reading: Positive; ap3 Outcome: 07:03 Discharge ordered by . mh7 07:21 Discharged to home ambulatory. ap3 07:21 Condition: good 07:21 Discharge instructions given to patient, Instructed on discharge instructions, follow up and referral plans. Demonstrated understanding of instructions, follow-up care. 07:22 Patient left the ED. ap3 Signatures: Dispatcher [employer] EDJennifer Valverde, RN RN lp1 Yara Amor RN RN ap3 Giacomo Wang MD MD 7 Bren Roberts Christie, RN RN cc4
--- NOTE | 2021-03-07 07:04 | EDPHYS ---
Physician Documentation [facility] Name: Aleyda Horton Age: 40 yrs Sex: Female : 1980 Arrival Date: 03/07/2021 Time: 05:06 Bed 23 Private MD: ED Physician Giacomo Wang HPI: 03/07 06:07 This 40 yrs old Female presents to ER via Ambulatory with complaints of mh7 Vaginal Bleeding, + Preg <12wks. 06:07 The patient presents to the emergency department with urinary symptoms, hematuria, mh7 vaginal bleeding, that is light, Possible. The estimated gestational age is 7 weeks. course: care: private OB physician, [facility], Leakage of Fluid: none appreciated, Ultrasound: the patient has not had an ultrasound, Risk/complications: no obvious risks or complications are appreciated. Previous pregnancies: in previous pregnancies patient has had ectopic . Associated signs and symptoms: Pertinent positives: abdominal pain, Cramping, Pertinent negatives: chest pain, diarrhea, dysuria, fever, frequency, nausea, ruptured membranes, seizure, shortness of breath, vaginal discharge, vomiting. The patient has been recently seen by a physician: 3 day(s) ago. Patient states that she is about 7 weeks . Patient is days that she has seen bright-colored blood with urination yesterday. She states it was slightly darker today. 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 She is uncertain if the blood is due to vaginal bleeding. She has had some mild lower abdominal cramping. She denies any chest pain, shortness of breath, fever, nausea, vomiting, diarrhea, or dysuria.. 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 - Social history:: Smoking status: Patient denies any tobacco usage or history of. ROS: 06:07 Constitutional: Negative for fever, chills, and weight loss, Eyes: Negative for injury, mh7 pain, redness, and discharge, ENT: Negative for injury, pain, and discharge, Neck: Negative for injury, pain, and swelling, Cardiovascular: Negative for chest pain, palpitations, and edema, Respiratory: Negative for shortness of breath, cough, wheezing, and pleuritic chest pain, Back: Negative for injury and pain, MS/Extremity: Negative for injury and deformity, Skin: Negative for injury, rash, and discoloration, Neuro: Negative for headache, weakness, numbness, tingling, and seizure, Psych: Negative for depression, anxiety, suicide ideation, homicidal ideation, and hallucinations, Allergy/Immunology: Negative for hives, rash, and allergies, Endocrine: Negative for neck swelling, polydipsia, polyuria, polyphagia, and marked weight changes, Hematologic/Lymphatic: Negative for swollen nodes, abnormal bleeding, and unusual bruising. Exam: 06:07 Constitutional: This is a well developed, well nourished patient who is awake, alert, mh7 and in no acute distress. Head/Face: Normocephalic, atraumatic. Eyes: Pupils equal round and reactive to light, extra-ocular motions intact. Lids and lashes normal. Conjunctiva and sclera are non-icteric and not injected. Cornea within normal limits. Periorbital areas with no swelling, redness, or edema. Neck: Trachea midline, no thyromegaly or masses palpated, and no cervical lymphadenopathy. Supple, full range of motion without nuchal rigidity, or vertebral point tenderness. No Meningismus. Chest/axilla: Normal chest wall appearance and motion. Nontender with no deformity. No lesions are appreciated. Cardiovascular: Regular rate and rhythm with a normal S1 and S2. No gallops, murmurs, or rubs. Normal PMI, no JVD. No pulse deficits. Respiratory: Lungs have equal breath sounds bilaterally, clear to auscultation and percussion. No rales, rhonchi or wheezes noted. No increased work of breathing, no retractions or nasal flaring. Abdomen/GI: Soft, non-tender, with normal bowel sounds. No distension or tympany. No guarding or rebound. No evidence of tenderness throughout. Back: No spinal tenderness. No costovertebral tenderness. Full range of motion. Skin: Warm, dry with normal turgor. Normal color with no rashes, no lesions, and no evidence of cellulitis. MS/ Extremity: Pulses equal, no cyanosis. Neurovascular intact. Full, normal range of motion. Neuro: Awake and alert, GCS 15, oriented to person, place, time, and situation. Cranial nerves II-XII grossly intact. Motor strength 5/5 in all extremities. Sensory grossly intact. Cerebellar exam normal. Normal gait. Psych: Awake, alert, with orientation to person, place and time. Behavior, mood, and affect are within normal limits. 06:07 : CVA tenderness, is absent, Pelvic Exam: The exam is refused by the [facility] patient/guardian. The risks and consequences are understood by the patient, Bladder: is normal. Vital Signs: 05:12 BP 128 / 80; Pulse 85; Resp 20; Temp 98.0; Pulse Ox 99% on R/A; cc4 05:17 BP 128 / 80; Pulse 91; Resp 18; Temp 98(O); Pulse Ox 99% on R/A; Weight 87.54 kg (R); lp1 Height 5 ft. 6 in. (167.64 cm); Pain 4/10; 06:15 BP 122 / 76; Pulse 82; Resp 20; Pulse Ox 98% on R/A; cc4 06:45 BP 123 / 79; Pulse 85; Resp 20; Pulse Ox 97% ; cc4 05:17 Body Mass Index 31.15 (87.54 kg, 167.64 cm) lp1 MDM: 06:07 Differential diagnosis: threatened Ab, inevitable Ab, complete Ab, retained Ab, septic mh7 Ab, missed Ab, ectopic . Data reviewed: vital signs, nurses notes, lab test result(s), Beta HCG: CBC, electrolytes, urinalysis, radiologic studies, ultrasound. Counseling: I had a detailed discussion with the patient and/or guardian regarding: the historical points, exam findings, and any diagnostic results supporting the discharge/admit diagnosis, lab results, radiology results, the need for outpatient follow up, an OB/Gyne specialist, to return to the emergency department if symptoms worsen or persist or if there are any questions or concerns that arise at home. Response to treatment: the patient's symptoms have markedly improved after treatment. 07:03 Patient medically screened. 7 03/07 05:24 Order name: Abo/rh Typing lp1 03/07 05:24 Order name: Basic Metabolic Panel; Complete Time: 06:55 lp1 03/07 05:24 Order name: CBC with Diff; Complete Time: 06:37 lp1 03/07 05:24 Order name: Quantitative Hcg; Complete Time: 06:55 lp1 03/07 05:33 Order name: Urine Microscopic Only tt3 03/07 05:33 Order name: Urine --Ancillary (enter results) tt3 03/07 05:24 Order name: IV Saline Lock; Complete Time: 06:27 lp1 03/07 05:24 Order name: Labs collected and sent; Complete Time: 05:33 lp1 03/07 05:24 Order name: NPO; Complete Time: 05:32 lp1 03/07 05:24 Order name: Urine Dipstick-Ancillary (obtain specimen); Complete Time: 05:32 lp1 03/07 05:24 Order name: Urine Test (obtain specimen); Complete Time: 05:32 lp1 03/07 05:24 Order name: Transvaginal OB US lp1 03/07 05:33 Order name: Urine Dipstick-Ancillary; Complete Time: 06:26 EDMS Administered Medications: No medications were administered Point of Care Testing: Urine : 07:22 hCG Reading: Positive; Control Reading: Positive; ap3 Disposition Summary: 03/07/21 07:03 Discharge Ordered Location: Home [facility] Problem: new [facility] Symptoms: have improved [facility] Condition: Stable 7 Diagnosis - Hematuria, unspecified mh7 - , 5 weeks 7 Followup: 7 - With: Private Physician - When: 1 - 2 days - Reason: Recheck today's complaints Followup: 7 - With: Nitin Talley MD - When: 1 - 2 days - Reason: Worsening of condition, Recheck today's complaints Discharge Instructions: - Discharge Summary Sheet 7 - Hematuria, Adult mh7 - Abdominal Pain During , [id number] [facility] Forms: - Medication Reconciliation Form [facility] - Thank You Letter 7 - Antibiotic Education 7 - Prescription Opioid Use [facility] Signatures: Dispatcher [employer] EDMS Jennifer Perry RN RN lp1 Giacomo Wang MD MD mh7
[2021-03-07 07:29] VITALS: TEMP 98
[2021-03-07 07:32] VITALS: BP 123/79; O2SAT 97
[2021-03-07 07:54] LABS: Urine Specific Gravity/Preg >1.030 (1.005-1.030)
[2021-03-07 08:30] LABS: Calcium Oxalate Crystals- Ur FEW (NONE SEEN); Urine Bacteria <20 /HPF (<20); Urine RBC >50 /HPF (NONE SEEN)
--- NOTE | 2021-03-07 09:31 | RAD REPORT ---
EXAM DESCRIPTION: US - Transvaginal OB - 03/07/2021 6:08 am CLINICAL HISTORY: Vaginal bleeding;Abd cramping, COMPARISON: TRANSVAGINALOB dated 12/25/2014 FINDINGS: Small round cystic structure is present in the fundal endometrium measuring 6 mm probably a small early gestational sac. No embryonic components yet visible. The maternal adnexa and ovaries are within normal limits. Normal Doppler blood flow was demonstrated to both ovaries. IMPRESSION: Cystic structure in the fundal endometrium probably represents an early gestational sac. Recommend serial HCG follow-up measurements as well as follow-up pelvic sonography in 10-12 days.
== END 2021-03-07 07:22 | disposition home or self-care (01) ==
LOC: ER 05:01
DX: O26.891 Other specified pregnancy related conditions, first trimester (principal); R31.9 Hematuria, unspecified; Z3A.01 Less than 8 weeks gestation of pregnancy; Z88.0 Allergy status to penicillin
CPT/HCPCS: 36415; 76817; 80048; 81003; 81015; 81025; 84702; 85025; 86900; 86901; 99284

== ENCOUNTER → 2023-05-13 | Emergency (ER) | payer SELFPAY ==
[~2023-05-13] MED LIST: CEFTRIAXONE 1000 MG/VIAL ONE; DIPHENHYDRAMINE 50 MG/ML VIAL ONE; FAMOTIDINE 20 MG/2 ML VIAL IV ONE; KETOROLAC 30 MG/ML INJ ONE; METHYLPREDNISOLONE 125 MG INJ ONE; MORPHINE 4 MG/ML SYR ONE; NA CHLORIDE 0.9% 1,000 ML ONE; ONDANSETRON 4 MG/2 ML VIAL ONE
--- OUTSIDE RECORDS SUMMARY | 2023-05-13 10:03 | XMS REPORT | Continuity of Care Document ---
Author Name Unknown Address [address] [place] [address] [facility] thconnect Address 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 Name Role Phone Dannielle Ortega Primary Care Physician +- [phone] DANNIELLE BRYAN Attending Clinician Unavailabl e Doctor Unassigned, [place] Attending Clinician U navailable Trimester, [facility] Res-1st Attending Clinician Unavailable Yari Mtz MD Attending Clinician [phone] YARI MTZ Attending Clinician Unavailable Dannielle Ortega Attending Clinician [phone] ANDRESSA BUCKLEY Attending Clinician Unavailable Andressa Buckley MD Attending Clinician [phone] [facility] Attending Clinician Unavailable ANDRESSA BUCKLEY Admitting Clinician Unavailable Payers Payer Name Policy Type Policy Number Effective Date Expirati on Date Source [employer] PENDING PENDING 2021 00:00:00 Problems Condition Name Condition Details Condition Category Status Onset Date Resolution Date Last Treatment Date Treating Clinician Comments Source Spontaneou s Spontaneou s Disease Active 2020-05 0-28 00:00: 00 [facility] Urinary tract infection in mother during , antepartum Urinary tract infection in mother during , antepartum Disease Active 2020-05 0-18 00:00: 00 [facility] Pregestati onal diabetes mellitus, modified White class B Pregestati onal diabetes mellitus, modified White class B Disease Active 2020-05 0-15 00:00: 00 [facility] Supervisio n of high risk , antepartum Supervisio n of high risk , antepartum Disease Active 2020-05 0 00:00: 00 [facility] Antepartum multigravi da of advanced maternal age Antepartum multigravi da of advanced maternal age Disease Active 2020-05 014 00:00: 00 [facility] Elevated BP without diagnosis of hypertensi on Elevated BP without diagnosis of hypertensi on Disease Active 2020-05 00:00: 00 [facility] Obesity affecting , antepartum Obesity affecting , antepartum Disease Active 2020-05 00:00: 00 [facility] Multiparit y Multiparit y Disease Active 2012-05 00:00: 00 [facility] Allergies, Adverse Reactions, Alerts Allergy Name Allergy Type Status Severity Reaction(s) Onset Date Inactive Date Treating Clinician Comments Source PENICILL IN G DRUG INGREDI Active High Rash 2012-05 00:00: 00 [facility] Penicill in G Propensi ty to adverse reaction s to drug Active Shortness of Breath 2012-05 00:00: 00 [facility] Social History Social Habit Start Date Stop Date Quantity Comments Source ASSERTION 2021-01-26 00:00:00 [facility] Exposure to SARS-CoV-2 (event) 2021-02-08 00:00:00 2021-03-10 11:06:00 Not sure [facility] Alcohol intake 2021-03-10 00:00:00 2021-03-10 00:00:00 Ex-drinker (finding) [facility] History of Social function 2021-02-24 00:00:00 2021-02-24 00:00:00 [facility] Tobacco use and exposure 2021-02-24 00:00:00 2021-02-24 00:00:00 Smokeless tobacco non-user [facility] Sex Assigned At 1980 00:00:00 1980 00:00:00 [facility] Smoking Status Start Date Stop Date Source Never smoked tobacco [facility] Medications Ordered Medication Name Filled Medication Name Start Date Stop Date Current Medication? Ordering Clinician Indication Dosage Frequency Signature (SIG) Comments Components Source No known medications 2020-05 13:10: 47 No [facility] Immunizations Ordered Immunization Name Filled Immunization Name Date Status Comments Source Influenza Virus Vaccine Quad IM, Preserv and ABX Free 6 MO-64 YRS 2021-02-24 00:00:00 Completed [facility] Influenza Virus Vaccine (3+ yrs) 2013-04-25 00:00:00 Completed [facility] Influenza Virus Vaccine (3+ yrs) Unknown Completed [facility] Influenza Virus Vaccine Quad IM, Preserv and ABX Free 6 MO-64 YRS (FLUCELVAX) Unknown Completed [facility] Vital Signs Vital Name Observation Time Observation Value Comments S ource Systolic blood pressure 2021-03-10 16:05:00 121 mm[Hg] [facility] Diastolic blood pressure 2021-03-10 16:05:00 78 mm[Hg] [facility] Heart rate 2021-03-10 16:05:00 88 /min [facility] Body temperature 2021-03-10 16:05:00 36.61 Marissa [facility] Respiratory rate 2021-03-10 16:05:00 18 /min [facility] Body height 2021-03-10 16:05:00 162.6 cm [facility] Body weight 2021-03-10 16:05:00 97.433 kg [facility] BMI 2021-03-10 16:05:00 36.87 kg/m2 [facility] Procedures Procedure Date / Time Performed Performing Clinicia n Source POCT TEST 2021-03-10 00:00:00 Kathy Velazquez [facility] Encounters Start Date/Time End Date/Time Encounter Type Admission Type Attending Clinicians Care Facility Care Department Encounter ID Source 2021-03-24 15:30:00 2021-03-24 15:30:00 Outpatient DANNIELLE COROCRAN [facility] [id number] [facility] 2021-03-16 00:00:00 2021-03-16 00:00:00 Patient Secure Msg Doctor Unassigned, [place] [facility] [id number] [id number] [facility] 2021-03-10 10:53:47 2021-03-10 11:38:43 Routine Visit Trimester, [facility] Res-1st Yari Mtz [facility] [id number] [id number] [facility] 2021-03-10 10:30:00 2021-03-10 11:38:43 Outpatient R YARI MTZ [facility] [id number] [facility] 2021-03-10 10:30:00 2021-03-10 11:38:43 Outpatient YARI KINGSTON [facility] [id number] [facility] 2021-03-08 00:00:00 2021-03-08 00:00:00 Telephone Dannielle Bryan [facility] DRYERMAN/WOMAN [facility] 1.840.114 [id number] [facility] 2021-03-07 11:43:00 2021-03-07 14:30:00 Emergency X ANDRESSA BUCKLEY [facility] ERT [id number] [facility] 2021-03-07 11:43:00 2021-03-07 14:30:00 Emergency Andressa Buckley [facility] [id number] [id number] [facility] 2021-03-07 11:43:00 2021-03-07 14:30:00 Emergency X ANDRESSA BUCKLEY [facility] ERT [id number] [facility] 2021-03-03 15:00:00 2021-03-03 15:28:36 Outpatient R DANNIELLE BRYAN [facility] [id number] [facility] 2021-03-03 15:09:38 2021-03-03 15:24:38 Cake Icer Visit Lab, Ang-Rmchp Dannielle Bryan [facility] DRYERMAN/WOMAN [facility] & CHILD [facility] [id number] [facility] 2021-03-03 15:00:00 2021-03-03 15:00:00 Outpatient DANNIELLE CORCORAN [facility] [id number] [facility] 2021-02-28 00:00:00 2021-02-28 00:00:00 Telephone Dannielle Bryan [facility] DRYERMAN/WOMAN [facility] CHILD [facility] [id number] [facility] 2021-02-25 00:00:00 2021-02-25 00:00:00 Telephone Dannielle Bryan [facility] DRYERMAN/WOMAN [facility] CHILD [facility] [id number] [id number] [facility] 2021-02-24 13:15:06 2021-02-24 14:42:25 Initial Visit Dannielle Bryan MAMRAY DRYERMAN/WOMAN [facility] [id number] [id number] [facility] 2021-02-24 12:45:00 2021-02-24 13:16:54 Outpatient DANNIELLE CORCORAN [facility] [id number] [facility] 2021-02-24 13:15:00 2021-02-24 13:15:00 Outpatient DANNIELLE CORCORAN [facility] [id number] [facility] 2021-02-24 00:00:00 2021-02-24 00:00:00 Orders Only Doctor Unassigned, [place] [facility] [id number] [id number] [id number] [facility] Results Test Description Test Time Test Comments Results Result Co mments Source [facility]
[2023-05-13 10:32] LABS: Absolute Lymphocytes (CBC) 1.2 K/uL (0.7-4.9); Hematocrit 41.7 % (36.0-45.0); Lymphocytes % 13.9 % (15.3-44.8); MCV 90.6 fL (80-100); MPV 9.6 fL (7.6-11.3); Platelets 251 thou/uL (152-406); RBC Red Blood Cell Count 4.61 M/uL (3.86-4.86)
[2023-05-13 10:34] LABS: Urine Bacteria >50 /HPF (<20); Urine Bilirubin NEGATIVE (Negative); Urine Blood Negative (Negative); Urine Clarity Extremely Turbid (Clear); Urine Color Dark-Yellow (Yellow); Urine Glucose NEGATIVE (Negative); Urine Mucus Slight /HPF (None Seen); Urine Protein TRACE (Negative); Urine Urobilinogen 1+ (Normal); Urine WBC Clump Occasional /HPF (None Seen); Urine pH 6.5 (5.0-7.0)
[2023-05-13 10:45] LABS: Albumin 3.6 g/dL (3.4-5.0); Bilirubin Total 1.2 mg/dL (0.2-1.0); Potassium 3.9 mEq/L (3.5-5.1); Protein, Total 8.3 g/dL (6.4-8.2)
--- NOTE | 2023-05-13 11:10 | RAD REPORT ---
EXAM DESCRIPTION: CTAbdomen Pelvis W Contrast - 05/13/2023 11:01 am CLINICAL HISTORY: Abdominal pain. Flank pain;Fever COMPARISON: <Comparisons> TECHNIQUE: Biphasic CT imaging of the abdomen and pelvis was performed with 100 ml non-ionic IV cont rast. All CT scans are performed using dose optimization technique as appropriate and may include automated exposure control or mA/KV adjustment according to patient size. FINDINGS: The lung bases are clear.Cholecystectomy. The liver, spleen, pancreas, adrenal glands and left kidney are within normal limits. Right sided the urothelium is noted to enhance suggesting urinary tract infection. No right-sided pyelonephritis fin dings seen. No bowel obstruction, free air, free fluid or abscess. Appendectomy. No evidence of significant lym phadenopathy. No suspicious bony findings. IMPRESSION: Descending right-sided urinary tract infection suspected. Correlation with urinalysis ibrahim ggested. No CT evidence of pyelonephritis is seen.
--- NOTE | 2023-05-13 12:27 | ER ---
Nurse's Notes [facility] Name: Aleyda Horton Age: 43 yrs Sex: Female : 1980 Arrival Date: 05/13/2023 Time: 10:00 Bed 13 Private MD: Diagnosis: UTI/ Urinary tract infection, site not specified Presentation: 05/13 10:12 Chief complaint: Right flank pain that radiates to RLQ, burning with urination, blood hb in urine, nausea, and fever x 3 days. Last had BC Powder at 0400 today. TMAX 100.3. Coronavirus screen: At this time, the client does not indicate any symptoms associated with coronavirus-19. Ebola Screen: No symptoms or risks identified at this time. Risk Assessment: Do you want to hurt yourself or someone else? Patient reports no desire to harm self or others. Onset of symptoms was May 11, 2023. 10:12 Method Of Arrival: Ambulatory hb 10:12 Acuity: [place] 3 hb 12:42 Initial Sepsis Screen: Does the patient meet any 2 criteria? No. Patient's initial cp4 sepsis screen is negative. Does the patient have a suspected source of infection? No. Patient's initial sepsis screen is negative. 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 - Social history:: Smoking status: Patient denies any tobacco usage or history of. Screenin:31 [facility] ED Fall Risk Assessment (Adult) History of falling in the last 3 months, cp4 including since admission No falls in past 3 months (0 pts). [facility] ED Fall Risk Assessment (Adult) Confusion or Disorientation No (0 pts) Intoxicated or Sedated No (0 pts) Impaired Gait No (0 pts) Mobility Assist Device Used No (0 pt) Altered Elimination No (0 pt) Score/Fall Risk Level 0 - 2 = Low Risk Oriented to surroundings, Maintained a safe environment, Educated pt \T\ family on fall prevention, incl call for assistance when getting out of bed, Assessed \T\ reinforced patient's understanding of fall precautions, Hourly rounding (assess needs \T\ fall precautionary measures) done. Abuse screen: Denies threats or abuse. Nutritional screening: No deficits noted. Tuberculosis screening: No symptoms or risk factors identified. Assessment: 10:31 General: Appears in no apparent distress. Behavior is calm, cooperative, appropriate cp4 for age. Pain: Complains of pain in abdomen Pain currently is 7 out of 10 on a pain scale. GI: Bowel sounds present X 4 quads. Abd is soft and non tender X 4 quads. Vital Signs: 10:12 BP 139 / 87; Pulse 118; Resp 24; Temp 98.7(A); Pulse Ox 100% on R/A; Weight 81.65 kg; hb Height 5 ft. 4 in. ; Pain 10/10; 12:35 BP 143 / 88; Pulse 99; Resp 18; Pulse Ox 95% ; cp4 10:12 Body Mass Index 30.90 (81.65 kg, 162.56 cm) hb 10:12 Pain Scale: Adult hb ED Course: 10:03 Patient arrived in ED. ts1 10:04 [facility]gu[facility] jh7 10:04 Gabriel Agosto MD is Attending Physician. 7 10:07 Soumya Russell is Primary Nurse. cp4 10:15 Triage completed. hb 10:31 Bed in low position. Call light in reach. Side rails up X 1. cp4 10:31 No provider procedures requiring assistance completed. Inserted saline lock: 20 gauge cp4 in right antecubital area, using aseptic technique. Blood collected. 11:03 CT Abd/Pelvis - IV Contrast Only In Process Unspecified. EDMS 12:41 Provided Education on: UTI. cp4 12:41 intact, bleeding controlled, No redness/swelling at site. Pressure dressing applied. cp4 12:42 Arm band placed on right wrist. Patient placed in the treatment room, on a stretcher. cp4 Administered Medications: 10:29 Drug: NS 0.9% IV 1000 ml IV at 1 bolus Per protocol; 1000 mL bolus Route: IV; Rate: 1 cp4 bolus; Site: right antecubital; 12:08 Follow up: Response: No adverse reaction; IV Status: Completed infusion cp4 10:29 Drug: Ondansetron IVP 4 mg IVP once; over 2 minutes Route: IVP; Site: right antecubital;cp4 12:09 Follow up: Response: No adverse reaction cp4 10:30 Drug: morphine IVP or IV 4 mg IVP once over 4 mins Route: IVP; Infused Over: 4 mins; cp4 Site: right antecubital; 12:09 Follow up: Response: No adverse reaction cp4 11:33 Drug: Rocephin IV 1 grams IV at 1 calculated rate once; Given slow IV push per pharmacy cp4 instructions Route: IV; Rate: 1 calculated rate; Site: right antecubital; 12:08 Follow up: Response: Adverse reaction, Physician notified cp4 11:33 Drug: Ketorolac IVP 30 mg IVP once Route: IVP; Site: right antecubital; cp4 12:08 Follow up: Response: Adverse reaction, Physician notified cp4 12:07 Drug: MethylPrednisoLONE IVP 125 mg IVP once Route: IVP; Site: right antecubital; cp4 12:36 Follow up: Response: No adverse reaction cp4 12:08 Drug: Famotidine IVP 20 mg IVP once; dilute with 10 mL 0.9% NaCl; give over 2 minutes cp4 Route: IVP; Site: right antecubital; 12:36 Follow up: Response: No adverse reaction cp4 12:08 Drug: diphenhydrAMINE IVP 50 mg IVP once Route: IVP; Site: right antecubital; cp4 12:36 Follow up: Response: No adverse reaction cp4 Medication: 10:31 VIS not applicable for this client. cp4 Outcome: 12:26 Discharge ordered by . henrik 12:41 Discharged to home ambulatory, cp4 12:41 Condition: stable 12:41 Discharge instructions given to patient, Instructed on discharge instructions, follow up and referral plans. medication usage, Demonstrated understanding of instructions, follow-up care, medications, Prescriptions given X 2, 12:42 Patient left the ED. cp4 Signatures: Dispatcher [employer] EDMS Esther Presley RN RN Coty Tapia, ROLL WEIGHER ROLL WEIGHER Kinsey Schilling PAS PAS ts1 Potter, Christina cp4
--- NOTE | 2023-05-13 12:27 | EDPHYS ---
Physician Documentation [facility] Name: Aleyda Horton Age: 43 yrs Sex: Female : 1980 Arrival Date: 05/13/2023 Time: 10:00 Bed 13 Private MD: ED Physician Gabriel Agosto HPI: 05/13 10:15 This 43 yrs old Female presents to ER via Ambulatory with complaints of Fever, jh7 General Weakness, Urinary Problem, Abdominal Pain. 10:15 The patient reports fever, that was measured at 101 degrees Fahrenheit. Onset: The jh7 symptoms/episode began/occurred 3 day(s) ago. Associated signs and symptoms: Pertinent positives: nausea, vomiting, flank pain, Pertinent negatives: chest pain, cough, diarrhea. Patient reports UTI symptoms for the past 3 days with fever, severe right flank pain radiating to the right lower quadrant, and nausea/vomiting starting yesterday. Reports that she has been drinking cranberry juice with no relief. No significant PMH.. 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 - Social history:: Smoking status: Patient denies any tobacco usage or history of. ROS: 10:15 Eyes: Negative for injury, pain, redness, and discharge, ENT: Negative for injury, jh7 pain, and discharge, Neck: Negative for injury, pain, and swelling, Cardiovascular: Negative for chest pain, palpitations, and edema, Respiratory: Negative for shortness of breath, cough, wheezing, and pleuritic chest pain, Back: Negative for injury and pain, MS/Extremity: Negative for injury and deformity, Skin: Negative for injury, rash, and discoloration, Neuro: Negative for headache, weakness, numbness, tingling, and seizure, 10:15 Constitutional: Positive for fever, malaise, 10:15 Abdomen/GI: Positive for abdominal pain, nausea and vomiting, Negative for diarrhea, constipation, 10:15 : Positive for urinary symptoms, pelvic pain, flank pain, burning with urination, Negative for vaginal discharge, vaginal itching, 10:15 All other systems are negative, Exam: 10:15 Head/Face: Normocephalic, atraumatic. Eyes: Pupils equal round and reactive to light, jh7 extra-ocular motions intact. Lids and lashes normal. Conjunctiva and sclera are non-icteric and not injected. Cornea within normal limits. Periorbital areas with no swelling, redness, or edema. Neck: Trachea midline, no thyromegaly or masses palpated, and no cervical lymphadenopathy. Supple, full range of motion without nuchal rigidity, or vertebral point tenderness. No Meningismus. Cardiovascular: Regular rate and rhythm with a normal S1 and S2. No gallops, murmurs, or rubs. Normal PMI, no JVD. No pulse deficits. Respiratory: Lungs have equal breath sounds bilaterally, clear to auscultation and percussion. No rales, rhonchi or wheezes noted. No increased work of breathing, no retractions or nasal flaring. Skin: Warm, dry with normal turgor. Normal color with no rashes, no lesions, and no evidence of cellulitis. MS/ Extremity: Pulses equal, no cyanosis. Neurovascular intact. Full, normal range of motion. Neuro: Awake and alert, GCS 15, oriented to person, place, time, and situation. Motor strength 5/5 in all extremities. Sensory grossly intact. Normal gait. 10:15 Constitutional: The patient appears alert, awake, in obvious pain, 10:15 Abdomen/GI: Inspection: abdomen appears normal, Bowel sounds: normal, Palpation: soft, mild abdominal tenderness, in the right lower quadrant, 10:15 : CVA tenderness, on the right, Vital Signs: 10:12 BP 139 / 87; Pulse 118; Resp 24; Temp 98.7(A); Pulse Ox 100% on R/A; Weight 81.65 kg; hb Height 5 ft. 4 in. ; Pain 10/10; 12:35 BP 143 / 88; Pulse 99; Resp 18; Pulse Ox 95% ; cp4 10:12 Body Mass Index 30.90 (81.65 kg, 162.56 cm) hb 10:12 Pain Scale: Adult hb MDM: 10:04 Patient medically screened. 7 11:50 ED course: HERNÁN Doloey informed me that the patient was having a reaction to either [facility] the Toradol or the Rocephin. The patient stated she had tolerated Rocephin in the past. Upon examination the patient denied shortness of breath but had hives present on her chest, neck, and face. Will administer anaphylaxis medications.. 12:30 Response to treatment: the patient's symptoms have markedly improved after treatment. [facility] 12:40 Differential diagnosis: UTI, Pyelonephritis, nephrolithiasis, appendicitis, 7 cholecystitis. Data reviewed: vital signs, nurses notes, lab test result(s), radiologic studies, CT scan. I considered the following discharge prescriptions or medication management in the emergency department Medications were administered in the Emergency Department. See MAR. Counseling: I had a detailed discussion with the patient and/or guardian regarding the historical points, exam findings, and any diagnostic results supporting the discharge/admit diagnosis, to return to the emergency department if symptoms worsen or persist or if there are any questions or concerns that arise at home. ED course: Advised to increase p.o. fluid intake and take antibiotics as directed. If symptoms worsen, or any new concerning symptoms develop, the patient should return to the ER for further eval.. 05/13 10:14 Order name: CBC with Diff; Complete Time: 11:09 [facility] 05/13 10:14 Order name: CMP; Complete Time: 11:09 [facility] 05/13 10:14 Order name: Lipase; Complete Time: 11:09 [facility] 05/13 10:14 Order name: Test, Urine; Complete Time: 11:09 [facility] 05/13 10:14 Order name: Urinalysis w/ reflexes; Complete Time: 11:09 [facility] 05/13 10:40 Order name: Urine Culture [facility] 05/13 10:14 Order name: CT Abd/Pelvis - IV Contrast Only; Complete Time: 11:15 [facility] 05/13 10:14 Order name: IV Saline Lock; Complete Time: 10:30 [facility] 05/13 10:14 Order name: Labs collected and sent; Complete Time: 10:30 [facility] Administered Medications: 10:29 Drug: NS 0.9% IV 1000 ml IV at 1 bolus Per protocol; 1000 mL bolus Route: IV; Rate: 1 cp4 bolus; Site: right antecubital; 12:08 Follow up: Response: No adverse reaction; IV Status: Completed infusion cp4 10:29 Drug: Ondansetron IVP 4 mg IVP once; over 2 minutes Route: IVP; Site: right antecubital;cp4 12:09 Follow up: Response: No adverse reaction cp4 10:30 Drug: morphine IVP or IV 4 mg IVP once over 4 mins Route: IVP; Infused Over: 4 mins; cp4 Site: right antecubital; 12:09 Follow up: Response: No adverse reaction cp4 11:33 Drug: Rocephin IV 1 grams IV at 1 calculated rate once; Given slow IV push per pharmacy cp4 instructions Route: IV; Rate: 1 calculated rate; Site: right antecubital; 12:08 Follow up: Response: Adverse reaction, Physician notified cp4 11:33 Drug: Ketorolac IVP 30 mg IVP once Route: IVP; Site: right antecubital; cp4 12:08 Follow up: Response: Adverse reaction, Physician notified cp4 12:07 Drug: MethylPrednisoLONE IVP 125 mg IVP once Route: IVP; Site: right antecubital; cp4 12:36 Follow up: Response: No adverse reaction cp4 12:08 Drug: Famotidine IVP 20 mg IVP once; dilute with 10 mL 0.9% NaCl; give over 2 minutes cp4 Route: IVP; Site: right antecubital; 12:36 Follow up: Response: No adverse reaction cp4 12:08 Drug: diphenhydrAMINE IVP 50 mg IVP once Route: IVP; Site: right antecubital; cp4 12:36 Follow up: Response: No adverse reaction cp4 Disposition: 05/14 08:52 Co-signature as Attending Physician, Gabriel Agosto MD I reviewed the patient's care rn provided by the Advanced Practice Provider and agree with the diagnosis and treatment plan. Disposition Summary: 05/13/23 12:26 Discharge Ordered Notes: Location: Home [facility] Problem: new [facility] Symptoms: have improved [facility] Condition: Stable [facility] Diagnosis - UTI/ Urinary tract infection, site not specified [facility] Followup: [facility] - With: Private Physician - When: 2 - 3 days - Reason: Recheck today's complaints Discharge Instructions: - Discharge Summary Sheet [facility] - Urinary Tract Infection, Adult [facility] Forms: - Medication Reconciliation Form [facility] - Thank You Letter [facility] - Antibiotic Education [facility] - Patient Portal Instructions [facility] - Leadership Thank You Letter [facility] Prescriptions: - Cipro 500 mg Oral tablet - take 1 tablet ORAL route every 12 hours for 7 days; 14 tablet; Refills: 0, jh7 Product Selection Permitted - Pyridium 200 mg Oral Tablet - take 1 tablet ORAL route every 8 hours for 3 days; 9 tablet; Refills: 0, jh7 Product Selection Permitted Signatures: [employer]ini [employer] Gabriel Hanley MD MD rn Esther Presley RN RN hb Hadash, Jennifer, READING INTERVENTION TEACHER [facility]7 Soumya Russell [facility]
[2023-05-13 12:56] VITALS: BP 143/88; TEMP 98.7; O2SAT 95
== END ==
LOC: ER 10:00
DX: N39.0 Urinary tract infection, site not specified (principal); Z88.0 Allergy status to penicillin
CPT/HCPCS: 36415; 74177; 80053; 81001; 81025; 83690; 85025; 87077; 87086; 87088; 87186; 96361; 96374; 96375; 99284; J0696; J1200; J2405; J2930; J7030; Q9967